=== PATIENT | male | born 1985 ===

== ENCOUNTER 2020-11-19 16:37 | Inpatient (IN) ==
[2020-11-19] MEDS ORDERED: DEXTROSE 50% 25 GM/50 ML VIAL IV PRN (17:59)
[2020-11-19] MEDS ORDERED: GLUCAGON 1 MG VIAL IM PRN (17:59)
[2020-11-19] MEDS ORDERED: hydrALAZINE 20 MG/1 ML VIAL IV PRN (17:59)
[2020-11-19] MEDS ORDERED: ONDANSETRON 4 MG/2 ML VIAL IV PRN (17:59)
[2020-11-19] MEDS: methylPREDNISolone SOD SUC 40 MG/1 ML VIAL IV SCH (18:29)
[2020-11-19] MEDS: LACTATED RINGERS 1,000 ML IV SCH (18:30)
[2020-11-19] MEDS: MORPHINE 2 MG/1 ML SYRINGE IV PRN (18:30)
[2020-11-19] MEDS: metroNIDAZOLE INJ 500 MG in PREMIX 1 EACH IV SCH (18:30)
[2020-11-19 18:41] LABS: Basophils % 0.1 % (0.0-0.8); Eosinophils # 0.3 10*3/uL (0.0-0.87); Eosinophils % 1.9 % (0.00-10.9); Hematocrit 26.4 VOL% (42.0-52.0); Hemoglobin 8.4 GM/DL (14.0-18.0); Immature Granulocytes Absolute 0.14 #; Lymphocytes # 3.6 10*3/uL (1.4-4.0); Lymphocytes % 24.9 % (21.2-54.2); Mean Corpuscular HGB Conc 31.8 GM/DL (32-36); Mean Platelet Volume 10.4 FL (9.6-12.0); Monocytes % 8.4 % (1.7-12.7); Neutrophils % 63.7 % (38.7-73.9); Platelet Count 194 T/CUMM (130-400); Red Cell Distribution Width 17.9 % (9.3-17.3); White Blood Count 14.6 T/CUMM (4-12)
[2020-11-19 19:11] LABS: Albumin 1.7 G/DL (3.4-5.0); Calcium 7.6 MG/DL (8.5-10.1); Osmolality,Calculated 273.7 MOS/KG (273-304)
[2020-11-19] MEDS: CIPROFLOXACIN INJ 400 MG/200 ML PREMIX IV SCH (22:30)
[2020-11-19] MEDS: PANTOPRAZOLE INJ 200 MG in SODIUM CHLORIDE 0.9% 250 ML IV SCH (23:32)
[2020-11-20 00:19] LABS: Band Neutrophils 1 % (0-10); Eosinophils 3 % (0-10); Hypochromasia Slight; Lymphocytes 12 % (20-55); Microcytosis 1+; Platelet Estimate Normal; Polychromasia Few; Segmented Neutrophils 81 % (50-85); Total Cells Counted 100
[2020-11-20 00:20] LABS: Target Cells Slight
[2020-11-20] MEDS: LACTATED RINGERS 1,000 ML IV SCH ×2 (02:02→09:26)
[2020-11-20 02:12] LABS: Hematocrit 23.8 VOL% (42.0-52.0); Hemoglobin 7.4 GM/DL (14.0-18.0)
[2020-11-20] MEDS: metroNIDAZOLE INJ 500 MG in PREMIX 1 EACH IV SCH ×2 (03:45→12:28)
[2020-11-20 05:45] LABS: Basophils % 0.1 % (0.0-0.8); Eosinophils % 0.1 % (0.00-10.9); Hematocrit 24.7 VOL% (42.0-52.0); Hemoglobin 7.7 GM/DL (14.0-18.0); Immature Granulocytes % 1.1 %; Lymphocytes # 1.6 10*3/uL (1.4-4.0); Mean Corpuscular HGB Conc 31.2 GM/DL (32-36); Mean Corpuscular Volume 87.3 FL (87-102); Mean Platelet Volume 10.4 FL (9.6-12.0); Monocytes % 3.9 % (1.7-12.7); Neutrophils % 77.8 % (38.7-73.9); Platelet Count 166 T/CUMM (130-400); Red Blood Count 2.83 MC/CUMM (3.8-5.5); Red Cell Distribution Width 17.6 % (9.3-17.3); White Blood Count 9.3 T/CUMM (4-12)
[2020-11-20 06:24] LABS: Calcium 7.5 MG/DL (8.5-10.1); Osmolality,Calculated 280.5 MOS/KG (273-304); Potassium 4.1 MMOL/L (3.5-5.1); Risk Ratio 3.17; VLDL Cholesterol 18.2 MG/DL
[2020-11-20] MEDS: methylPREDNISolone SOD SUC 40 MG/1 ML VIAL IV SCH (06:50)
[2020-11-20] MEDS ORDERED: MAGNESIUM SULF RIDER 2 GM/50 ML PREMIX IV ONE (08:03)
[2020-11-20 08:11] LABS: Band Neutrophils 10 % (0-10); Eosinophils 1 % (0-10); Lymphocytes 13 % (20-55); Segmented Neutrophils 73 % (50-85); Total Cells Counted 100
[2020-11-20 08:14] LABS: Anisocytosis 1+; Hypochromasia 1+; Microcytosis 1+; Polychromasia Slight
[2020-11-20 08:15] LABS: Platelet Estimate Adequate
[2020-11-20] MEDS ORDERED: PANTOPRAZOLE 40 MG VIAL IV SCH (09:00)
[2020-11-20] MEDS ORDERED: LIDOCAINE 2% 5 ML VIAL ONE (09:17)
[2020-11-20] MEDS ORDERED: propofoL 200 MG/20 ML VIAL IV ONE ×2 (09:17→09:26)
[2020-11-20] MEDS ORDERED: PHENYLEPHRINE 1 MG/10 ML SYRINGE IV ONE (09:37)
[2020-11-20] MEDS: CIPROFLOXACIN INJ 400 MG/200 ML PREMIX IV SCH (10:55)
[2020-11-20] MEDS: MESALAMINE 800 MG TABLET PO SCH ×3 (12:28→20:41)
[2020-11-20 12:40] LABS: Hematocrit 24.2 VOL% (42.0-52.0); Hemoglobin 7.5 GM/DL (14.0-18.0)
[2020-11-20] MEDS ORDERED: SODIUM CHLORIDE 0.9% 1,000 ML IV PRN (14:25)
[2020-11-21 01:11] LABS: Hematocrit 24.4 VOL% (42.0-52.0); Hemoglobin 7.8 GM/DL (14.0-18.0)
[2020-11-21] MEDS: PANTOPRAZOLE INJ 200 MG in SODIUM CHLORIDE 0.9% 250 ML IV SCH (02:06)
[2020-11-21] MEDS: methylPREDNISolone SOD SUC 40 MG/1 ML VIAL IV SCH ×3 (02:16→17:58)
[2020-11-21] MEDS: CIPROFLOXACIN INJ 400 MG/200 ML PREMIX IV SCH ×3 (02:16→22:40)
[2020-11-21] MEDS: metroNIDAZOLE INJ 500 MG in PREMIX 1 EACH IV SCH ×4 (02:17→17:59)
[2020-11-21] MEDS: MORPHINE 2 MG/1 ML SYRINGE IV PRN (04:30)
[2020-11-21 06:11] LABS: Basophils % 0.3 % (0.0-0.8); Hemoglobin 8.3 GM/DL (14.0-18.0); Immature Granulocytes % 2.3 %; Immature Granulocytes Absolute 0.24 #; Lymphocytes # 1.2 10*3/uL (1.4-4.0); Lymphocytes % 11.4 % (21.2-54.2); Mean Corpuscular HGB Conc 31.9 GM/DL (32-36); Mean Corpuscular Volume 85.5 FL (87-102); Mean Platelet Volume 10.1 FL (9.6-12.0); Platelet Count 189 T/CUMM (130-400); Red Blood Count 3.04 MC/CUMM (3.8-5.5); Red Cell Distribution Width 17.3 % (9.3-17.3); White Blood Count 10.7 T/CUMM (4-12)
[2020-11-21] MEDS: LACTATED RINGERS 1,000 ML IV SCH ×5 (06:18→18:17)
[2020-11-21 06:41] LABS: Albumin 1.6 G/DL (3.4-5.0); Bilirubin,Total 2.6 MG/DL (0.20-1.00); Calcium 7.8 MG/DL (8.5-10.1); Osmolality,Calculated 278.5 MOS/KG (273-304); Potassium 3.8 MMOL/L (3.5-5.1); Total Protein 6.9 G/DL (6.4-8.2)
[2020-11-21 06:48] LABS: Lymphocytes 1 % (20-55); Segmented Neutrophils 96 % (50-85); Total Cells Counted 100
[2020-11-21 06:49] LABS: Hypochromasia 2+; Microcytosis 1+; Platelet Estimate Decreased
[2020-11-21] MEDS: MESALAMINE 800 MG TABLET PO SCH ×4 (08:46→22:42)
[2020-11-21 11:52] LABS: Hematocrit 26.7 VOL% (42.0-52.0); Hemoglobin 8.8 GM/DL (14.0-18.0)
[2020-11-21 18:22] LABS: Hematocrit 26.8 VOL% (42.0-52.0); Hemoglobin 8.7 GM/DL (14.0-18.0)
[2020-11-22] MEDS: metroNIDAZOLE INJ 500 MG in PREMIX 1 EACH IV SCH ×2 (02:24→13:20)
[2020-11-22] MEDS: PANTOPRAZOLE INJ 200 MG in SODIUM CHLORIDE 0.9% 250 ML IV SCH (02:27)
[2020-11-22 06:03] LABS: Basophils % 0.5 % (0.0-0.8); Eosinophils % 0.1 % (0.00-10.9); Hematocrit 25.6 VOL% (42.0-52.0); Hemoglobin 8.5 GM/DL (14.0-18.0); Immature Granulocytes % 3.8 %; Immature Granulocytes Absolute 0.29 #; Lymphocytes # 0.8 10*3/uL (1.4-4.0); Lymphocytes % 10.6 % (21.2-54.2); Mean Corpuscular HGB Conc 33.2 GM/DL (32-36); Mean Corpuscular Volume 86.5 FL (87-102); Mean Platelet Volume 10.5 FL (9.6-12.0); Monocytes % 4.1 % (1.7-12.7); Neutrophils % 80.9 % (38.7-73.9); Platelet Count 189 T/CUMM (130-400); Red Blood Count 2.96 MC/CUMM (3.8-5.5); Red Cell Distribution Width 17.5 % (9.3-17.3); White Blood Count 7.6 T/CUMM (4-12)
[2020-11-22] MEDS: LACTATED RINGERS 1,000 ML IV SCH ×3 (06:25→18:31)
[2020-11-22] MEDS: methylPREDNISolone SOD SUC 40 MG/1 ML VIAL IV SCH (06:25)
[2020-11-22 06:41] LABS: Albumin 1.7 G/DL (3.4-5.0); Bilirubin,Total 1.6 MG/DL (0.20-1.00); Osmolality,Calculated 276.7 MOS/KG (273-304); Potassium 3.8 MMOL/L (3.5-5.1); Total Protein 6.9 G/DL (6.4-8.2)
[2020-11-22 06:45] LABS: Albumin 1.6 G/DL (3.4-5.0); Bilirubin,Direct 0.92 MG/DL (0.0-0.20); Bilirubin,Indirect 1.2 MG/DL (0.0-1.0); Bilirubin,Total 2.1 MG/DL (0.20-1.00); Total Protein 6.9 G/DL (6.4-8.2)
[2020-11-22 06:59] LABS: Anisocytosis 2+; Hypochromasia 1+; Platelet Estimate Normal
[2020-11-22 07:00] LABS: Poikilocytosis Slight
[2020-11-22] MEDS: CIPROFLOXACIN INJ 400 MG/200 ML PREMIX IV SCH (10:03)
[2020-11-22] MEDS: MESALAMINE 800 MG TABLET PO SCH ×4 (10:04→22:39)
[2020-11-22] MEDS: metroNIDAZOLE 500 MG TABLET PO SCH (22:39)
[2020-11-22] MEDS: CIPROFLOXACIN 500 MG TABLET PO SCH (22:39)
[2020-11-23] MEDS: LACTATED RINGERS 1,000 ML IV SCH ×2 (02:36→13:11)
[2020-11-23 05:40] LABS: Basophils % 0.2 % (0.0-0.8); Hematocrit 25.6 VOL% (42.0-52.0); Hemoglobin 8.2 GM/DL (14.0-18.0); Immature Granulocytes % 2.2 %; Lymphocytes % 10.7 % (21.2-54.2); Mean Platelet Volume 10.1 FL (9.6-12.0); Monocytes % 7.2 % (1.7-12.7); Neutrophils % 79.7 % (38.7-73.9); Platelet Count 199 T/CUMM (130-400); Red Blood Count 2.91 MC/CUMM (3.8-5.5); Red Cell Distribution Width 17.7 % (9.3-17.3)
[2020-11-23 06:07] LABS: Albumin 1.6 G/DL (3.4-5.0); Bilirubin,Total 1.3 MG/DL (0.20-1.00); Calcium 7.8 MG/DL (8.5-10.1); Osmolality,Calculated 273.8 MOS/KG (273-304); Total Protein 6.2 G/DL (6.4-8.2)
[2020-11-23] MEDS: metroNIDAZOLE 500 MG TABLET PO SCH ×3 (06:27→21:28)
[2020-11-23] MEDS: predniSONE 20 MG TABLET PO SCH (08:51)
[2020-11-23] MEDS: MESALAMINE 800 MG TABLET PO SCH ×5 (08:51→21:29)
[2020-11-23] MEDS: CIPROFLOXACIN 500 MG TABLET PO SCH ×2 (08:51→21:28)
[2020-11-23] MEDS: PANTOPRAZOLE 40 MG VIAL IV SCH ×2 (08:52→21:29)
[2020-11-24] MEDS: LACTATED RINGERS 1,000 ML IV SCH ×2 (02:20→12:30)
[2020-11-24] MEDS: metroNIDAZOLE 500 MG TABLET PO SCH ×3 (05:59→22:18)
[2020-11-24] MEDS: MORPHINE 2 MG/1 ML SYRINGE IV PRN (06:01)
[2020-11-24 06:38] LABS: Basophils % 0.1 % (0.0-0.8); Hematocrit 28.2 VOL% (42.0-52.0); Hemoglobin 8.9 GM/DL (14.0-18.0); Immature Granulocytes % 2.1 %; Immature Granulocytes Absolute 0.15 #; Lymphocytes # 0.9 10*3/uL (1.4-4.0); Lymphocytes % 12.2 % (21.2-54.2); Mean Corpuscular HGB Conc 31.6 GM/DL (32-36); Mean Corpuscular Volume 88.1 FL (87-102); Mean Platelet Volume 10.3 FL (9.6-12.0); Monocytes % 7.1 % (1.7-12.7); Neutrophils % 78.5 % (38.7-73.9); Platelet Count 193 T/CUMM (130-400); Red Cell Distribution Width 17.9 % (9.3-17.3); White Blood Count 7.1 T/CUMM (4-12)
[2020-11-24 07:02] LABS: Albumin 1.9 G/DL (3.4-5.0); Bilirubin,Total 2.1 MG/DL (0.20-1.00); Calcium 8.1 MG/DL (8.5-10.1); Osmolality,Calculated 276.5 MOS/KG (273-304); Potassium 3.9 MMOL/L (3.5-5.1); Total Protein 6.6 G/DL (6.4-8.2)
[2020-11-24 07:04] LABS: Band Neutrophils 1 % (0-10); Hypochromasia 1+; Lymphocytes 6 % (20-55); Microcytosis 1+; Platelet Estimate Adequate; Segmented Neutrophils 89 % (50-85); Total Cells Counted 100
[2020-11-24] MEDS: predniSONE 20 MG TABLET PO SCH (09:11)
[2020-11-24] MEDS: CIPROFLOXACIN 500 MG TABLET PO SCH ×2 (09:11→22:18)
[2020-11-24] MEDS: MESALAMINE 800 MG TABLET PO SCH ×4 (09:11→22:18)
[2020-11-24] MEDS: PANTOPRAZOLE 40 MG VIAL IV SCH (09:12)
[2020-11-24] MEDS: PANTOPRAZOLE 40 MG TABLET PO SCH (22:18)
[2020-11-25] MEDS: metroNIDAZOLE 500 MG TABLET PO SCH ×2 (05:27→12:03)
[2020-11-25 05:45] LABS: Basophils % 0.2 % (0.0-0.8); Eosinophils % 0.2 % (0.00-10.9); Immature Granulocytes % 1.9 %; Immature Granulocytes Absolute 0.12 #; Lymphocytes % 16.1 % (21.2-54.2); Mean Corpuscular Volume 87.4 FL (87-102); Mean Platelet Volume 10.2 FL (9.6-12.0); Neutrophils % 75.6 % (38.7-73.9); Platelet Count 169 T/CUMM (130-400); Red Blood Count 2.86 MC/CUMM (3.8-5.5); Red Cell Distribution Width 17.8 % (9.3-17.3); White Blood Count 6.2 T/CUMM (4-12)
[2020-11-25 05:59] LABS: Anisocytosis 1+; Band Neutrophils 3 % (0-10); Hypochromasia 1+; Lymphocytes 13 % (20-55); Microcytosis 1+; Segmented Neutrophils 78 % (50-85); Total Cells Counted 100
[2020-11-25 06:00] LABS: Platelet Estimate Adequate
[2020-11-25 06:04] LABS: Albumin 1.6 G/DL (3.4-5.0); Bilirubin,Total 1.3 MG/DL (0.20-1.00); Calcium 7.6 MG/DL (8.5-10.1); Osmolality,Calculated 276.5 MOS/KG (273-304); Total Protein 5.9 G/DL (6.4-8.2)
[2020-11-25 07:12] VITALS: BP 124/59
[2020-11-25] MEDS: CIPROFLOXACIN 500 MG TABLET PO SCH (09:20)
[2020-11-25] MEDS: predniSONE 20 MG TABLET PO SCH (09:20)
[2020-11-25] MEDS: PANTOPRAZOLE 40 MG TABLET PO SCH (09:20)
[2020-11-25] MEDS: MESALAMINE 800 MG TABLET PO SCH ×2 (09:20→12:03)
== END 2020-11-25 12:06 | disposition home or self-care (01) | DRG 386 ==
LOC: EDBD → EDUNIT# → N.ED 16:37 → N.EDINP 18:00 → SUATTDRO 18:00 → N.EDINP 20:16 → N.5E 21:02
PROVIDERS: ADMIT Internal Medicine; ATTEND Hospitalist
PROC: COLONBX (2020-11-20 09:05)